=== PATIENT | male | born 1990 | race Caucasian/White ===

== ENCOUNTER 2024-06-29 14:22 | Emergency (ER) | payer MEDICAID ==
[~2024-06-29] VITALS: Ht 177.8 cm; Wt 72.6 kg
[2024-06-29 14:32] VITALS: BP_SYST 134; PULSE 87; RESP 16; TEMP 98.3; O2SAT 96
[2024-06-29 15:47] VITALS: BP_SYST 134; PULSE 87; RESP 16; TEMP 98.3; O2SAT 96
== END 2024-06-29 15:45 | disposition home or self-care (01) ==
LOC: SED 14:22
DX: R76.11 Nonspecific reaction to tuberculin skin test without active tuberculosis (principal); Z88.8 Allergy status to other drugs, medicaments and biological substances
CPT/HCPCS: 71045; 99283